=== PATIENT | female | born 1955 | race Caucasian/White ===

== ENCOUNTER 2020-07-02 06:42 | Outpatient (REF) | payer OTHER, SELFPAY ==
[2020-07-02 12:46] LABS: Cholesterol 231 mg/dL; HDL Cholesterol 47 mg/dL; LDL Cholesterol Calculated 143 mg/dl; Triglycerides 205 mg/dL
== END 2020-07-02 06:43 | disposition home or self-care (01) ==
LOC: HO.HMGCLDS 06:42
PROVIDERS: PCP Physician Assistant; Visit Provider Physician Assistant
DX: E78.00 Pure hypercholesterolemia, unspecified (principal)
CPT/HCPCS: 36415; 80061

== ENCOUNTER 2021-01-02 07:23 | Outpatient (REF) | payer OTHER, SELFPAY ==
--- NOTE | ~2021-01-02 | MM_ITS ---
EXAMINATION: MM SCREENING DIGITAL BREAST TOMOSYNTHESIS, BILATERAL CLINICAL INFORMATION: Screening. Asymptomatic. Benign right MR biopsy 3:00 position 2016 (Fibrocystic changes including apocrine metaplasia, microcysts, and moderate ductal hyperplasia). The lifetime risk of breast cancer based on the Tyrer-Cuzick Model is 6%. COMPARISON: Mammography: 12/27/2019, 10/20/2018, 10/18/2017, 10/01/2016 TECHNIQUE: Digital breast tomosynthesis is performed in both the craniocaudal and mediolateral oblique views along with computer-aided detection (CAD). Synthesized 2D images are generated from the tomosynthesis. FINDINGS: The breasts are heterogeneously dense, which may obscure small masses (ACR BI-RADS breast composition Category c). Breast tissue composition borders on average fibroglandular. The left breast parenchymal pattern is similar to prior exams. There is no developing density or interval mass or architectural abnormality. There are 2 biopsy clip markers again noted medial left breast. Neither breast shows abnormal calcifications. The axilla and skin contours are unremarkable. Right breast has biopsy clip marker mid to posterior 3:30 o'clock position. There is new grouped nodularity mid to posterior 3:00 position. This may represent fibrocystic changes. There is also a 0.6 cm posterior to o'clock position increased in size. Visualized margins appear smooth. There are partially obscured margins. No architectural distortion. Patient will be recalled for additional imaging. Remainder of the right breast is unremarkable. MM/MM tomosynthesis screening BI IMPRESSION: Right: -New grouped obscured nodularity 3:30 position. -Small nodule 8:00 position increased in size. Left: -No mammographic evidence of malignancy. ASSESSMENT: BI-RADS 0: Incomplete - Need Additional Imaging Evaluation RECOMMENDATION: 1. Additional views of the right breast for findings inner and outer quadrants (3D spot CC and 3D Spot MLO to better define margins). 2. Targeted ultrasound right breast. 3. Radiology department staff will contact the patient for additional imaging. This patient's information was entered into a reminder system with a target due date for their next mammogram.
== END 2021-01-02 07:24 | disposition home or self-care (01) ==
LOC: HO.MAMMO 07:23
PROVIDERS: PCP Internal Medicine; Visit Provider Physician Assistant
DX: Z12.31 Encounter for screening mammogram for malignant neoplasm of breast (principal)
CPT/HCPCS: 77063; 77067

== ENCOUNTER 2021-01-08 07:48 | Outpatient (REF) | payer OTHER, SELFPAY ==
--- NOTE | ~2021-01-08 | US_ITS ---
EXAMINATION: US DIAGNOSTIC ULTRASOUND BREAST, RIGHT CLINICAL INFORMATION: Circumscribed densities on mammography. COMPARISON: Mammogram of January 08, 2021 and studies dating back to June 24, 2015. TECHNIQUE: Ultrasound of the breast is performed with real-time luque scale imaging and color Doppler. FINDINGS: Targeted right breast ultrasound demonstrates numerous cysts with smooth back pinon and increased through sound transmission and no internal vascularity. Around the 2:00 position the largest cysts measure approximately 8 and 6 mm in diameter. At the 8:00 position of the largest cyst measures approximately 6 mm in diameter. Results are discussed with the patient at time of visit. US/US breast RT limited IMPRESSION: Circumscribed densities on mammography correspond to cysts on ultrasound. ASSESSMENT: BI-RADS 2: Benign RECOMMENDATION: Routine annual mammography screening due in 12 months.
--- NOTE | ~2021-01-08 | MM_ITS ---
EXAMINATION: MM DIAGNOSTIC DIGITAL BREAST TOMOSYNTHESIS, RIGHT TARGETED RIGHT BREAST ULTRASOUND CLINICAL INFORMATION: Multiple circumscribed densities within the right breast medial and lateral aspects. COMPARISON: Mammography: 01/02/2021 and studies dating back to 06/05/2015 TECHNIQUE: Digital breast tomosynthesis is performed. 2D images are generated from the tomosynthesis. The following views are obtained: Spot compression views in craniocaudal and mediolateral oblique projections. Targeted right breast ultrasound. FINDINGS: There are scattered areas of fibroglandular density (ACR BI-RADS breast composition Category b). Numerous well-circumscribed densities are present the largest of which is in the medial aspect of the right breast measuring 1.1 cm in diameter. No suspicious irregularly marginated densities were present. Targeted right breast ultrasound demonstrates numerous cysts with smooth back pinon and increased through sound transmission and no internal vascularity. Around the 2 o'clock position, the largest cysts measure approximately 8 and 6 mm in diameter. At the 8 o'clock. position the largest cyst measures approximately 6 mm in diameter. Results are discussed with the patient at time of visit. MM/MM tomosynthesis added views R IMPRESSION: Circumscribed densities on mammography correspond to cysts on ultrasound. ASSESSMENT: BI-RADS 2: Benign RECOMMENDATION: Routine annual mammography screening due in 12 months. This patient's information was entered into a reminder system with a target due date for their next mammogram.
== END 2021-01-08 07:49 | disposition home or self-care (01) ==
LOC: HO.MAMMO 07:48
PROVIDERS: Visit Provider Physician Assistant
DX: N63.10 Unspecified lump in the right breast, unspecified quadrant (principal)
CPT/HCPCS: 76642; 77061; 77065

== ENCOUNTER 2022-01-06 07:24 | Outpatient (REF) | payer MEDICARE, SELFPAY ==
--- NOTE | ~2022-01-06 | MM_ITS ---
EXAMINATION: MM SCREENING DIGITAL BREAST TOMOSYNTHESIS, BILATERAL CLINICAL INFORMATION: Screening. Asymptomatic. The lifetime risk of breast cancer based on the Tyrer-Cuzick Model is 6%. COMPARISON: Mammography: 01/08/2021, 01/02/2021, 12/27/2019, 10/20/2018, 10/19/1979, right breast ultrasound 01/08/2021. TECHNIQUE: Digital breast tomosynthesis is performed in both the craniocaudal and mediolateral oblique views along with computer-aided detection (CAD). Synthesized 2D images are generated from the tomosynthesis. FINDINGS: The breasts are heterogeneously dense, which may obscure small masses (ACR BI-RADS breast composition Category c). There are fibrocystic changes again seen greatest mid medial right breast with other smooth fibronodular pattern as noted on prior studies. Fibrocystic changes medial right breast are increased in size. There are 2 medial left breast biopsy clip markers and a medial right clip marker. There is no architectural abnormality. No abnormal calcifications. The axilla and skin contours are unremarkable. MM/MM tomosynthesis screening BI IMPRESSION: -No significant changes from prior studies. -Fibrocystic pattern, known cysts medial right breast slightly increased. ASSESSMENT: BI-RADS 2: Benign RECOMMENDATION: Routine annual mammography screening. This patient's information was entered into a reminder system with a target due date for their next mammogram.
== END 2022-01-06 07:25 | disposition home or self-care (01) ==
LOC: HO.MAMMO 07:24
PROVIDERS: PCP Internal Medicine; Visit Provider Internal Medicine
DX: Z12.31 Encounter for screening mammogram for malignant neoplasm of breast (principal)
CPT/HCPCS: 77063; 77067

== ENCOUNTER 2022-08-18 09:34 | Outpatient (REF) | payer MEDICARE, SELFPAY ==
[2022-08-18 10:58] LABS: MANUAL DIFF FLAG NO
[2022-08-18 11:11] LABS: Basophils Percent Auto 0.5 % (0-2); Eosinophils Absolute Auto 0.1 X10*3/uL (0.0-0.4); Eosinophils Percent Auto 1.4 % (0-4); Hematocrit 34.9 % (37.0-47.0); Hemoglobin 11.8 g/dl (12.0-16.0); Imm Gran Abs Auto 0.03 X10*3/uL (0.00-0.03); Imm Gran Pct Auto 0.5 % (0.0-0.4); Lymphocytes Absolute Auto 2.2 X10*3/uL (1.2-4.9); Lymphocytes Percent Auto 38.9 % (20-40); Mean Corpuscular HGB Conc 33.8 g/dl (31.0-35.0); Mean Corpuscular Hemoglobin 30.1 pg (27.0-33.0); Mean Platelet Volume 9.5 fL (9.4-12.3); Monocytes Absolute Auto 0.3 X10*3/uL (0.1-1.2); Monocytes Percent Auto 6.1 % (2-11); Neutrophils Absolute Auto 2.9 x10*3/uL (2.0-8.3); Neutrophils Percent Auto 52.6 % (45-73); Platelet Count 211 X10*3/uL (160-400); Red Blood Count 3.92 X10*6/uL (4.20-5.50); Red Cell Distribution Width 11.8 % (11.0-16.0); White Blood Count 5.6 X10*3/uL (4.8-10.8)
[2022-08-18 11:59] LABS: Estimated Average Glucose 100 mg/dL; Hemoglobin A1c % 5.1 %
[2022-08-18 12:01] LABS: Alanine Aminotransferase 15 U/L (0-31); Albumin Level 4.4 g/dL (3.5-5.0); Alkaline Phosphatase 49 U/L (39-117); Anion Gap 11 (12-20); Aspartate Amino Transferase 16 U/L (5-31); Bilirubin Total 0.5 mg/dL (0.0-1.0); Blood Urea Nitrogen 17 mg/dL (9-16); Calcium 9.5 mg/dL (8.4-10.2); Carbon Dioxide 28 mmol/L (22-29); Chloride 111 mmol/L (96-108); Estimated Glomerular Filt Rate > 60; Glucose Random 69 mg/dL (60-115); Potassium 4.6 mmol/L (3.3-5.1); Sodium 145 mmol/L (135-145); Total Protein 6.5 g/dL (6.5-8.0)
== END 2022-08-18 09:35 | disposition home or self-care (01) ==
LOC: HO.MANLDS 09:34
PROVIDERS: Visit Provider Physician Assistant
DX: Z00.00 Encounter for general adult medical examination without abnormal findings (principal); I10 Essential (primary) hypertension; R73.01 Impaired fasting glucose
CPT/HCPCS: 36415; 80053; 83036; 85025

== ENCOUNTER 2023-01-19 07:36 | Outpatient (REF) | payer MEDICARE, SELFPAY ==
--- NOTE | ~2023-01-19 | MM_ITS ---
EXAMINATION: MM SCREENING DIGITAL BREAST TOMOSYNTHESIS, BILATERAL CLINICAL INFORMATION: Screening. Asymptomatic. Benign right MR biopsy 3:00 position 2016 (Fibrocystic changes including apocrine metaplasia, microcysts, and moderate ductal hyperplasia). COMPARISON: Mammography: 01/06/2022, 01/08/2021, 01/02/2021, 12/27/2019, and dating back to 2016. TECHNIQUE: Digital breast tomosynthesis is performed in both the craniocaudal and mediolateral oblique views along with computer-aided detection (CAD). Synthesized 2D images are generated from the tomosynthesis. FINDINGS: The breasts are heterogeneously dense, which may obscure small masses (ACR BI-RADS breast composition Category c). Post benign biopsy clip noted in the medial posterior left breast, and medial anterior right breast. Circumscribed masses in both breasts are again noted, consistent with waxing and waning cysts as seen on recent ultrasound 01/08/2021. These are benign. There are no suspicious masses, suspicious grouped calcifications, or areas of architectural distortion in either breast. The parenchymal pattern is stable from prior exams. MM/MM tomosynthesis screening BI IMPRESSION: No mammographic evidence of malignancy. Stable benign findings consistent with waxing and waning cysts. ASSESSMENT: BI-RADS BI-RADS 2 - Benign Findings RECOMMENDATION: Routine annual mammography screening. 1 year F/U This examination should not preclude the clinical evaluation of a suspicious palpable abnormality. This patient's information was entered into a reminder system with a target due date for their next mammogram.
== END 2023-01-19 07:37 | disposition home or self-care (01) ==
LOC: HO.MAMMO 07:36
PROVIDERS: PCP Internal Medicine; Visit Provider Internal Medicine
DX: Z12.31 Encounter for screening mammogram for malignant neoplasm of breast (principal)
CPT/HCPCS: 77063; 77067

== ENCOUNTER → 2023-01-19 07:45 | Outpatient (BNV) | payer MEDICARE, SELFPAY | PROVIDERS: PCP Internal Medicine; Visit Provider Radiology Diagnostic Radiology | DX: Z12.31 Encounter for screening mammogram for malignant neoplasm of breast (principal) | CPT/HCPCS: 77063; 77067 ==

== ENCOUNTER 2023-04-25 09:17 | Outpatient (AMB) | payer MEDICARE, SELFPAY ==
--- NOTE | 2023-04-25 11:15 | MHC.OFFWIV ---
Intake Vital Signs 04/25/23 11:28 BP 120/78 Blood Pressure Location Rt brachial Position Sitting Pulse 76 Pulse Source Pulse Oximeter Temp 98.0 F Temp Source Temporal Artery Scan Pulse Oximetry (%) 97 Intake Visit Reasons: EST/cough/[phone] Intake Note: pt is here for c/o cough x3 weeks Patient Tobacco Use Status: Never used Tobacco Allergies No Known Allergies Allergy (Verified 04/25/23 12:02) Medication List - Last Reconciled 04/25/23 by Dov Silva MD estradiol 0.01%(0.1mg/gram) vaginal lisinopril 10 mg PO DAILY Do you need a note to return to daycare/school/sports/work: Yes HPI EST/cough/[phone] HPI Details Patient presents for a sick visit. Reporting symptoms of sinus congestion, sore throat . . No family member is sick. No recent travel. Patient reports symptoms of malaise and fatigue. Symptoms present for the past 3 weeks. [facility] Patient Tobacco Use Status: Never used Tobacco Physical Exam Vital Signs: Last Vital Signs Temp 98.0 F 04/25/23 11:28 Pulse 76 04/25/23 11:28 BP 120/78 04/25/23 11:28 Pulse Ox 97 04/25/23 11:28 Const General: cooperative and healthy appearing Nutritional Appearance: well nourished Orientation/consciousness: patient oriented x3 Limitations: no limitations HEENT Head: Yes normal to inspection Eyes General: appearance normal, both eyes and all related structures Neck Neck: Yes normal visual inspection Chest Chest palpation & inspection: normal palpation of entire chest wall Resp Effort & Inspection: normal respiratory effort Neuro General: patient oriented x3 Assessment & Plan Assessment & Plan (1) Upper respiratory tract infection: Code(s): J06.9 - Acute upper respiratory infection, unspecified Plan: Antibiotics ordered. Increase fluid intake. Tylenol for aches and pains. If symptoms worsen, follow-up here for a recheck. Coding Level of Care Code Est Pt Level 3 (55818) Diagnoses Upper respiratory tract infection J06.9
[2023-04-25 11:28] VITALS: BP 120/78; PULSE 76; TEMP 36.7; O2SAT 97
== END 2023-04-25 12:33 | disposition home or self-care (01) ==
PROVIDERS: PCP Internal Medicine; Visit Provider Internal Medicine
DX: J06.9 Acute upper respiratory infection, unspecified (principal)
CPT/HCPCS: 99213

== ENCOUNTER 2023-09-16 07:07 | Outpatient (REF) | payer MEDICARE, SELFPAY ==
[2023-09-16 10:25] LABS: MANUAL DIFF FLAG NO
[2023-09-16 10:44] LABS: Basophils Percent Auto 0.5 % (0-2); Eosinophils Absolute Auto 0.1 X10*3/uL (0.0-0.4); Eosinophils Percent Auto 1.6 % (0-4); Hematocrit 35.9 % (37.0-47.0); Hemoglobin 12.2 g/dl (12.0-16.0); Imm Gran Abs Auto 0.01 X10*3/uL (0.00-0.03); Imm Gran Pct Auto 0.2 % (0.0-0.4); Lymphocytes Absolute Auto 2.2 X10*3/uL (1.2-4.9); Lymphocytes Percent Auto 35.7 % (20-40); Mean Corpuscular Hemoglobin 30.5 pg (27.0-33.0); Mean Corpuscular Volume 89.8 fL (80.0-98.0); Mean Platelet Volume 9.9 fL (9.4-12.3); Monocytes Absolute Auto 0.4 X10*3/uL (0.1-1.2); Monocytes Percent Auto 6.5 % (2-11); Neutrophils Absolute Auto 3.4 x10*3/uL (2.0-8.3); Neutrophils Percent Auto 55.5 % (45-73); Platelet Count 190 X10*3/uL (160-400); Red Cell Distribution Width 12.1 % (11.0-16.0); White Blood Count 6.2 X10*3/uL (4.8-10.8)
[2023-09-16 11:25] LABS: Alanine Aminotransferase 23 U/L (0-31); Albumin Level 4.4 g/dL (3.5-5.0); Alkaline Phosphatase 54 U/L (39-117); Anion Gap 10 (12-20); Aspartate Amino Transferase 21 U/L (5-31); Bilirubin Total 0.3 mg/dL (0.0-1.0); Blood Urea Nitrogen 18 mg/dL (9-16); Calcium 9.6 mg/dL (8.4-10.2); Carbon Dioxide 25 mmol/L (22-29); Chloride 110 mmol/L (96-108); Cholesterol 236 mg/dL (<200); Estimated Glomerular Filt Rate > 60; Glucose Random 92 mg/dL (60-115); HDL Cholesterol 45 mg/dL (>40); LDL Cholesterol Calculated 148 mg/dL (<100); Potassium 4.2 mmol/L (3.3-5.1); Sodium 141 mmol/L (135-145); Total Protein 6.9 g/dL (6.5-8.0); Triglycerides 217 mg/dL (<150)
== END 2023-09-16 07:08 | disposition home or self-care (01) ==
LOC: HO.HMGCLDS 07:07
PROVIDERS: PCP Physician Assistant; Visit Provider Physician Assistant
DX: Z00.00 Encounter for general adult medical examination without abnormal findings (principal); Z13.6 Encounter for screening for cardiovascular disorders
CPT/HCPCS: 36415; 80053; 80061; 85025

== ENCOUNTER 2024-01-25 07:41 | Outpatient (REF) | payer MEDICARE, SELFPAY ==
--- NOTE | ~2024-01-25 | MM_ITS ---
EXAMINATION: MM SCREENING DIGITAL BREAST TOMOSYNTHESIS, BILATERAL CLINICAL INFORMATION: Screening. Asymptomatic. COMPARISON: Mammography: Comparison is made with available priors TECHNIQUE: Digital breast tomosynthesis is performed in both the craniocaudal and mediolateral oblique views along with computer-aided detection (CAD). Synthesized 2D images are generated from the tomosynthesis. FINDINGS: The breasts are heterogeneously dense, which may obscure small masses (ACR BI-RADS breast composition Category c). Left: Circumscribed oval mass retroareolar region middle depth. Architectural distortion the lateral breast on CC view posterior depth. Marker clip. No suspicious calcifications or other abnormal findings. Right: There are no significant masses, abnormal calcifications, or other abnormalities. MM/MM tomosynthesis screening BI IMPRESSION: Right: No mammographic evidence of malignancy. Left: Circumscribed oval mass and asymmetry. Additional imaging and ultrasound are recommended at this time. ASSESSMENT: BI-RADS BI-RADS 0 - Incomplete: Needs additional Imaging. RECOMMENDATION: 1. Additional views of the left breast 2. Targeted ultrasound if warranted after review of the additional views. 3. Radiology department staff will contact the patient for additional imaging. Additional Imaging required This examination should not preclude the clinical evaluation of a suspicious palpable abnormality. This patient's information was entered into a reminder system with a target due date for their next mammogram. Electronically signed by: Amara Alfaro DO 02/17/2024 03:42 PM EDT
== END 2024-01-25 07:42 | disposition home or self-care (01) ==
LOC: HO.MAMMO 07:41
PROVIDERS: PCP Physician Assistant; Visit Provider Internal Medicine
DX: Z12.31 Encounter for screening mammogram for malignant neoplasm of breast (principal)
CPT/HCPCS: 77063; 77067

== ENCOUNTER → 2024-01-25 07:45 | Outpatient (BNV) | payer MEDICARE, SELFPAY | PROVIDERS: PCP Physician Assistant; Visit Provider Internal Medicine | DX: Z12.31 Encounter for screening mammogram for malignant neoplasm of breast (principal) | CPT/HCPCS: 77063; 77067 ==

== ENCOUNTER 2024-04-02 13:46 | Outpatient (REF) | payer MEDICARE, SELFPAY ==
--- NOTE | ~2024-04-02 | MM_ITS ---
EXAMINATION: MM DIAGNOSTIC DIGITAL BREAST TOMOSYNTHESIS, LEFT US BREAST LIMITED, LEFT MAMMOGRAPHY: CLINICAL INFORMATION: Diagnostic exam; evaluate one view asymmetry CC projection lateral aspects left breast. Evaluate oval circumscribed mass approximate 6:30 to 7:00 position central left breast. COMPARISON: Mammography: 01/25/2024, 01/19/2023, 01/06/2022, 01/08/2021, 01/02/2021, and dating back to 2017. TECHNIQUE: Digital breast tomosynthesis is performed in the following views: Full field 3-D left mediolateral view, as well as 3-D spot compression left CC x2 and left MLO x1 views. Computer-aided diagnosis was used for this study. FINDINGS: There are scattered areas of fibroglandular density (ACR BI-RADS breast composition Category b). One view asymmetry in lateral CC projection does not persist on diagnostic views and is consistent with summation artifact/superimposition of normal breast tissues. Oval 8 mm mass persists in the central inferior left breast, which measured 5 mm approximately in 2020. We will evaluate this with ultrasound. There are post benign biopsy clips in the lower inner left breast from previous biopsies. There are no suspicious abnormalities. ULTRASOUND: CLINICAL INFORMATION: Oval 8 mm mass central inferior left breast, seen on mammography. COMPARISON: No relevant prior left breast ultrasound. TECHNIQUE: Targeted sonographic evaluation was performed using a high frequency linear transducer. Attention was given to the inferior aspect left breast to include the area of mammographic concern. Selected archived documentation. FINDINGS: LEFT BREAST: There is a simple cysts in the 6:00 axis, 3 cm from the nipple, measuring 7 x 5 x 6 mm, with no complicating factor. This correlates well with the mammographic finding. This is benign. MM/MM tomosynthesis added views L IMPRESSION: -There are no persistent findings suspicious for malignancy in the left breast. -Simple cyst measuring 7 mm in the 6:00 axis left breast, correlating with mammographic area of concern. This is benign. -Recommend the patient return to routine annual screening. OVERALL ASSESSMENT: Mammography: BI-RADS 2 - Benign Findings Ultrasound: BI-RADS 2 - Benign Findings RECOMMENDATION: 1 year F/U This patient's information was entered into a reminder system with a target due date for their next mammogram. Electronically signed by: Christian Hough MD 04/02/2024 02:45 PM [facility]
== END 2024-04-02 13:47 | disposition home or self-care (01) ==
LOC: HO.MAMMO 13:46
PROVIDERS: PCP Internal Medicine; Visit Provider Internal Medicine
DX: R92.8 Other abnormal and inconclusive findings on diagnostic imaging of breast (principal); N63.24 Unspecified lump in the left breast, lower inner quadrant
CPT/HCPCS: 76642; 77061; 77065

== ENCOUNTER → 2024-04-02 14:00 | Outpatient (BNV) | payer MEDICARE, SELFPAY | PROVIDERS: PCP Internal Medicine; Visit Provider Radiology Diagnostic Radiology | DX: R92.8 Other abnormal and inconclusive findings on diagnostic imaging of breast (principal) | CPT/HCPCS: 76642; 77065; G0279 ==

== ENCOUNTER 2024-08-29 07:10 | Outpatient (REF) | payer MEDICARE, SELFPAY ==
--- OUTSIDE RECORDS SUMMARY | 2024-08-29 07:13 | XMS_ITS | Data Portability ---
Author Organization [facility] Home Service Address [address] [place] [address] Assessment Encounter Date Assessment Date Assessment LastModified by Organization Details LastModified Time 05/07/2022 05/07/2022 Per the recent ACC cardiac risk stratification guidelines this patient is cleared for the proposed cataract surgery . [email or web address] Not available 05/07/2022 16:02:26 08/18/2022 08/18/2022 The patient denies recent falls or recurrent falls. Denies instability, weakness, abnormal gait, or difficulties with movement. The patient wears correct, supportive shoes and is not otherwise severely visually impaired. The patient is full weight bearing and if using the assistance of a cane or walker feels supported and stable with the use of such devices. All medical conditions have been taken into account that may pose a risk for the patient for falls. Home thais, carpets and/or rugs do not pose a challenge for the patient. The patient has been educated about the use of vitamin D supplementation for bone health and prevention of hypotensive episodes that may increase risk for fall. All question and concerns were answered to the patient's satisfaction. [email or web address] Not available 08/18/2022 09:19:39 Plan of Treatment Reminders Order Date Submit Date Provider Last Modified By Organization Details Last Modified Time Details Appointments None recorded. Lab CMP, serum or plasma 2024 025 [facility], [address] [place] [address], [address], 10:34:11 CBC 2024 025 [facility], [address] [place] [address], [address], 5 10:34:11 vitamin D, 25-hydroxy , total, serum 2024 025 [facility], [address] [place] [address], [address], 5 10:34:11 lipid panel, blood 2024 025 [facility], [address] [place] [address], [address], 5 10:34:10 CMP, serum or plasma 2023 024 [facility], [address] [place] [address], [address], 4 09:25:29 CBC w/ auto diff 2023 024 [facility], [address] [place] [address], [address], 4 11:27:37 lipid panel, blood 2023 024 [facility], [address] [place] [address], [address], 4 09:25:29 CMP, serum or plasma 2022 023 [facility], [address] [place] [address], [address], 3 11:33:57 lipid panel, blood 2022 023 [facility], [address] [place] [address], [address], 3 09:25:18 CBC w/ auto diff 2022 023 [facility], [address] [place] [address], [address], 3 11:33:57 hemoglobin A1c, QN, blood 2022 023 [facility], [address] [place] [address], ARASELI [place], [address], 3 11:33:57 Referral None recorded. Procedures None recorded. Surgeries None recorded. Imaging None recorded. Medication Orders estradiol 0.01% (0.1 mg/gram) vaginal cream 2022 023 [id number], [address] [facility] [place], [address], 09:14:43 lisinopril 10 mg tablet 2022 023 [facility], [facility], [place], [address], 09:14:40 Patient TargetsNo targets recorded. Patient InstructionsNo instructions recorded. Reason for Referral None Reported. Results Created Date Observation Date Name Description Value Unit Range Abnormal Flag Note LastModifiedBy Organization Detail LastModifiedTime 02/05/2001/19/2023 MAMMO , scree cindy, digit al, bilat eral No observ ation record ed. [email or web address] [address] [place], [address], 02/04/2023 12:13:30 02/17/20 24 01/25/2024 MAMMO , scree cindy, digit al, bilat eral No observ ation record ed. [email or web address] [address] [place], [address], 02/18/2024 09:15:06 04/02/20 24 04/02/2024 MAMMO , unila teral , left and US, breas t, left No observ ation record ed. [email or web address] [address] [place], [address], 04/03/2024 12:02:27 04/02/20 24 04/02/2024 MAMMO , devibouchra cindy, estephanie al, bilat alanl No observ ation record ed. [email or web address] [facility] [address] [place], [address], 04/03/2024 10:16:52 Result Notes None recorded. Problems Name Problem SNOMED Code Status Onset Date Resolution Date Notes Provider Name and Address Organization Details Recorded Time Osmel l hyperten manjeet 38849646 Active [facility] [place] 9 16:29:50 Anxiety 28879650 Active 2018 Alexandravinicius carson [facility] 9 16:31:50 Atrophic vaginiti s 48402945 Active 2021 GRACIELA CAMPBELL [address] [place] [address], [address], [facility] 2 09:42:58 Osteoart hritis 361171519 Active 2023 GRACIELA CAMPBELL [address] [place] [address], [address], [facility] 4 09:08:52 Pain of left knee joint 51114649098 4107 Active 2023 GRACIELA CAMPBELL [address] [place] [address], [address], [facility] 4 10:30:08 Hearing loss 73072981 Active 2024 getting hearing aids GRACIELA CAMPBELL [address] [place], [address], [facility] 5 13:41:34 Problem Notes None recorded. Procedures Surgical History Date Name Laterality Status Provider Name and Address Organization Details Recorded Time 12/27/19 20 Most Recent Mammogram completed Alexandravinicius Bowen [facility] 01/08/2020 08:45:16 07/13/19 18 Date of Last Pap Smear completed [facility] 08/25/2018 16:33:53 09/28/19 14 Colonoscopy completed [facility] 08/25/2018 16:36:26 Breast Biopsy completed [facility] 08/25/2018 16:32:23 Hysterectomy/bl adder repair completed GRACIELA CAMPBELL [address] [place], [address], [facility] 08/18/2022 09:10:52 extraction of cataract completed GRACIELA CAMPBELL [address] [place], [address], [facility] 08/26/2023 09:10:35 Imaging Results Imaging Date Name Status LastModified by Organiz ation Details LastModified Time 01/19/2023 MAMMO, screening, digital, bilateral completed [email or web address] [address] [place], [address], 02/04/2023 12:13:30 01/25/2024 MAMMO, screening, digital, bilateral completed [email or web address] [address] [place], [address], 02/18/2024 09:15:06 04/02/2024 MAMMO, unilateral, left and US, breast, left completed [email or web address] [address] [place], [address], 04/03/2024 12:02:27 04/02/2024 MAMMO, screening, digital, bilateral completed [email or web address] [address] [place], [address], 04/03/2024 10:16:52 Procedure Notes None recorded. Medical Equipment None Reported. Allergies No known drug allergies Medications Name Sig Start Date Stop Date Status Note LastModified by Organization Details LastModified Time estradiol 0.1 mg/gm crea 1 gram tu & 01/07 completed Not Available Not Available Not Available oxycodone hcl 5 mg tabs 11/15 completed Not Available Not Available Not Available metronidazo le 1 % gel 11/15 completed Not Available Not Available Not Available ibuprofen 600 mg tabs 11/15 completed Not Available Not Available Not Available lisinopril 5 mg tabs 11/15 completed Not Available Not Available Not Available polyethylen e glycol 3350 powd 11/15 completed Not Available Not Available Not Available lisinopril 10 mg tabs 11/15 completed Not Available Not Available Not Available azithromyci n 250 mg tablet TAKE 2 TABLETS BY MOUTH TODAY, THEN TAKE 1 TABLET DAILY FOR 4 DAYS DIRECTED 08/25 completed Not Available Not Available Not Available ofloxacin 0.3 % eye drops INSTILL 1 DROP INTO RIGHT EYE 4 TIMES DAILY STARTING DAY AFTER SURGERY AND CONTINUIN G active Not Available Not Available No t Available Zyrtec 10 mg tablet Take 1 tablet every day by oral route in the evening. active OTC Not Available Not Available No t Available ketorolac 0.5 % eye drops INSTILL 1 DROP INTO RIGHT EYE FOUR TIMES A DAY 08/18 completed Not Available Not Available Not Available prednisolon e acetate 1 % eye drops,suspe nsion INSTILL 1 DROP INTO THE RIGHT EYE 4 TIMES A DAY STARTING THE DAY AFTER SURGERY AND CONTINUIN G active Not Available Not Available No t Available ciprofloxac in 0.3 % eye drops 08/18 completed Not Available Not Available Not Available lisinopril 10 mg tablet TAKE 1 TABLET DAILY active Not Available Not Available No t Available sertraline 25 mg tablet TAKE 1 TABLET DAILY active Not Available Not Available No t Available codeine 10 mg-guaifene sin 100 mg/5 mL oral liquid TAKE 5MLS BY MOUTH EVERY 6 HOURS NEEDED FOR ALLERGY SYMPTOMS 08/25 completed Not Available Not Available Not Available lisinopril 5 mg tablet TAKE 1 TABLET BY MOUTH ONCE DAILY NEEDS APPT FOR FURTHER REFILLS 11/15 completed Not Available Not Available Not Available mupirocin 2 % topical ointment APPLY AM AND PM AFTER WASHING WITH SOAP AND WATER TO CYST SITE ON CHEST UNTIL HEALED active Not Available Not Available No t Available estradiol 0.01% (0.1 mg/gram) vaginal cream INSERT 1 GRAM VAGINALLY EVERY TUESDAY AND OMODY DIRECTED. active Not Available Not Available No t Available metronidazo le 1 % topical gel APPLY TOPICALLY TO FACE DAILY 08/18 completed Not Available Not Available Not Available calcium 600mg once a day active Not Available Not Available No t Available Metrogel apply once a day 08/25 completed Not Available Not Available Not Available multivitami n once a day active Not Available Not Available No t Available Tylenol Arthritis Pain once at night active OTC Not Available Not Available No t Available COVID-19 test specimen collection TEST DIRECTED TODAY 08/07 completed Not Available Not Available Not Available Vitals Date Recorded Body height Body mass index (BMI) Body weight Oxygen saturation Oxygen saturation in Arterial blood by Pulse oximetry Heart rate Systolic blood pressure Diastolic blood pressure Provider Name and Address Organization Details Last Updated DateTime 2 162.56 cm 25.6 kg/m2 53718.2 6 g 98 % 98 % 93 /min 132 mm[Hg] 78 mm[Hg] Chasity Cunha [facility] 2 15:29:53 Date Recorded Body height Body mass index (BMI) Body weight Heart rate Oxygen saturation Oxygen saturation in Arterial blood by Pulse oximetry Systolic blood pressure Diastolic blood pressure Provider Name and Address Organization Details Last Updated DateTime 3 162.56 cm 26.1 kg/m2 60382.1 2 g 91 /min 91 % 91 % 122 mm[Hg] 58 mm[Hg] Amirah Gu [facility] 3 09:05:13 Date Recorded Body height Body mass index (BMI) Body weight Oxygen saturation Oxygen saturation in Arterial blood by Pulse oximetry Heart rate Systolic blood pressure Diastolic blood pressure Provider Name and Address Organization Details Last Updated DateTime 4 162.56 cm 27.3 kg/m2 92032.1 9 g 98 % 98 % 95 /min 150 mm[Hg] 84 mm[Hg] Amirah Gu [facility] 4 09:03:54 Date Recorded Body height Body mass index (BMI) Body weight Heart rate Oxygen saturation Oxygen saturation in Arterial blood by Pulse oximetry Systolic blood pressure Diastolic blood pressure Provider Name and Address Organization Details Last Updated DateTime 5 162.56 cm 27.1 kg/m2 52250.8 8 g 90 /min 95 % 95 % 128 mm[Hg] 86 mm[Hg] Rosenda Benitez [facility] 13:29:37 Date Recorded Body height Body mass index (BMI) Body weight Heart rate Oxygen saturation Oxygen saturation in Arterial blood by Pulse oximetry Systolic blood pressure Diastolic blood pressure Provider Name and Address Organization Details Last Updated DateTime 162.56 cm 27 kg/m2 37752.8 g 89 /min 96 % 96 % 146 mm[Hg] 92 mm[Hg] Rosenda Benitez [facility] 09:59:16 Social History Question Answer Notes LastModified by Organizat ion Details LastModified Time Tobacco Smoking Status Former Smoker on and off 10 years; stopped in early . [facility] [place] 08/07/2021 15:26:00 What Was The Date Of Your Most Recent Tobacco Screening? 08/27/2024 [email or web address] Information not available 08/27/2024 Do You Or Have You Ever Used Any Other Forms Of Tobacco Or Nicotine? No [email or web address] Information not available 08/18/2022 Sex: Unknown Functional Status None recorded. Mental Status None recorded. Family History Relationship Description Onset Age of this Age Resolved Age Notes LastModified by Organization Details LastModified Time Father Essential hypertension Not available 09:51:58 Mother Essential hypertension Not available 09:51:58 Mother Diabetes mellitus [email or web address] Not available 2018 08:16:03 Unspecified Relation Essential hypertension jerry [email or web address] Not available 08/27/2024 09:51:58 Maternal Grandmother Family history of malignant neoplasm colon cancer Not available 08/27/2024 09:51:58 Paternal Uncle Family history of malignant neoplasm Not available 2024 09:51:58 Maternal Uncle Family history of malignant neoplasm colon cancer Not available 08/27/2024 09:51:58 Medical History Condition Response Coronary Artery Disease N Gout N Kidney Stones N Blood Diseases N Hyperthyroidism N Breast Cancer N Blood Transfusion N Lung Disease N Hypothyroidism N Depression N COPD N Difficulty Swallowing N Anesthesia Complications Y Anxiety Disorder Y Obesity N Vision or Eye Problems Y Mental Disorder N Cancer N Stroke N Bladder or Kidney Problems N High Cholesterol N Liver Disease N Headaches N Fibromyalgia N Kidney Disease N Allergies/Hayfever Y Heart Problems N Thyroid Problems N GI Problems N Skin Problems N Eating Disorder N Anemia N Constipation N Mental Illness N Diabetes N Seizures/Epilepsy N Congestive Heart Failure (CHF) N Eczema N Diverticulitis N Abuse/Domestic Violence N Asthma N Reflux/GERD N Hepatitis N Heart Disease N Pulmonary Embolism N Hypertension Y Chronic Ear Infections N Chicken Pox Y Autism Spectrum Disorder (ASD) N Thrombophilias N Gynecological History Statement/Question Response Date of Last Pap Smear 07/13/2017 Most Recent Mammogram 12/27/2019 Obstetrics History GPAL:G 0 P 0 0 0 0 Immunizations Vaccine Type Date Status Note Provider Nam e and Address Organization Details Recorded Time zoster recombinant 09/05/19 21 completed GRACIELA CAMPBELL [address] [place] [address], [address], [facility] 08/07/2021 15:47:55 COVID-19, mRNA, LNP-S, PF, 100 mcg/0.5mL dose or 50 mcg/0.25mL dose 09/05/19 21 completed Chasity carson [facility] 09/15/2021 11:13:33 COVID-19, mRNA, LNP-S, PF, 100 mcg/0.5mL dose or 50 mcg/0.25mL dose 10/03/19 21 completed Chasity carson [facility] 09/15/2021 11:13:41 COVID-19, mRNA, LNP-S, PF, 100 mcg/0.5mL dose or 50 mcg/0.25mL dose 05/01/20 21 completed Chasity carson [facility] 09/15/2021 11:13:49 zoster, unspecified formulation 06/19/19 22 completed Chasity carson [facility] 09/15/2021 11:14:31 zoster, unspecified formulation 09/05/19 22 completed Chasity carson [facility] 09/15/2021 11:14:38 Influenza, split virus, quadrivalent, preservative 04/24/20 21 completed Chasity carson [facility] 09/15/2021 11:15:01 Influenza, split virus, quadrivalent, preservative 03/17/20 [facility] 11:15:09 Influenza, split virus, quadrivalent, preservative 02/23/20 19 [facility]15[facility]2021 11:15:19 influenza, unspecified formulation 04/02/20 [facility] 08/18/2022 09:11:49 Pneumococcal conjugate PCV20, polysaccharide QCV268 conjugate, adjuvant, PF 09/02/19 24 completed GRACIELA CAMPBELL [address] [place] [address], [address], [facility] 09/02/2023 16:00:20 Respiratory syncytial virus (RSV) vaccine, unspecified 09/02/19 24 completed GRACIELA CAMPBELL [address] [place] [address], [address], [facility] 09/02/2023 16:00:56 SARS-COV-2 (COVID-19) vaccine, UNSPECIFIED 03/13/20 [facility] 03/13/2024 11:04:12 SARS-COV-2 (COVID-19) vaccine, UNSPECIFIED 03/12/20 24 completed GRACIELA CAMPBELL [address] [place] [address], [address], [facility] 03/13/2024 11:04:21 influenza, unspecified formulation 03/13/20 24 [facility] 03/13/2024 11:04:23 influenza nasal, unspecified formulation 03/12/20 24 completed GRACIELA CAMPBELL [address] [place] [address], [address], [facility] 03/13/2024 11:04:37 Td(adult) unspecified formulation 01/29/20 16 [facility] [place] 08/25/2018 16:33:05 Influenza, split virus, quadrivalent, preservative 03/17/20 20 completed Alexandra Bowen [facility] 03/18/2020 09:09:44 Past Encounters Encounter ID Performer Location Encounter Start Date Encounter Closed Date Diagnosis/Indication Diagnosis SNOMED-CT Code Diagnosis ICD10 Code Diagnosis Note [id number] Usha Hanson NP, [facility] [address] [facility] [place] [address] 08/28/2018 09:10:44 08/28/2018 13:53:21 Adult health examination 876066729 Z00.00 Anxiety 74552283 F41.9 Essential hypertension 71581621 I10 increase lisinopril to 10 mg Screening procedure 2012 5006 Z13.9 Active or passive immunization 336321441 Z23 Decreased estrogen level 587481985 E28.39 Usha Hanson NP, [facility] [address] [facility] [address] 10/10/2018 11:35:03 10/10/2018 13:51:15 Cystocele without uterine prolapse 08218229 N81.10 discussed options Painless r ectal bleeding 041969916 K62.5 colonoscop y 09/2013 Essential hypertension 80043576 I10 remains elevated, will recheck in 3 weeks [id number] GRACIELA CAMPBELL [facility] [address] [facility],[place] [facility] [place] [address] 11/16/2019 09:02:10 11/16/2019 09:42:48 Adult health examination 342024881 Z00.00 no concerns today [id number] GRACIELA CAMPBELL [facility] [address] [facility],[place] [address] 08/07/2021 15:13:24 08/10/2021 16:15:05 Active or passive immunization 209083923 Z23 up to date Adult heal th examination 289040449 Z00.00 [place] [id number] GRACIELA CAMPBELL [facility] [address] [facility],[place] [address] 08/14/2021 15:27:19 08/14/2021 15:45:14 Essential hypertension 92342013 I10 [place]N [id number] GRACIELA CAMPBELL [facility] [address] [facility] [address],[place] [address] 09/16/2021 09:29:28 09/16/2021 09:58:57 Essential hypertension 35415673 I10 BP is stable, no changes, home readings are excellent Anxiety 79536812 F41.1 stable [id number] Ion Rhoades, [facility] [address] [facility] [address],[place] [address] 05/07/2022 15:22:10 05/07/2022 16:09:16 Pre-surgery evaluation 269727507 Z01.818 Cleared pt understand s to take her usual medication s on morning of the procedure with sips of H20 [id number] GRACIELA CAMPBELL [facility] [address] [facility] [address] [place] [address] 08/18/2022 08:56:20 08/18/2022 10:56:53 Active or passive immunization 645143282 Z23 up to date Adult heal examination 577095173 Z00.00 no concerns todaywill be monitoring BP Atrophic vaginitis 40833 000 N95.2 needs refilldoin g well on it Essential hypertension 63400806 I10 BP is stable, no changes, home readings are excellent [id number] GRACIELA CAMPBELL [facility] [address] [facility] [address] [place] [address] 08/26/2023 08:57:42 08/26/2023 11:25:38 Anxiety 52086227 F41.1 stable Essential hypertension 97476275 I10 recheck BPmonitor BP at home Osteoarthritis 801267529 M16.0 left knee and left hip Adult heal th examination 481455880 Z00.00 no concerns todaywill be monitoring BP [id number] GRACIELA CAMPBELL [facility] [address] [facility] [address],[place] [address] 07/24/2024 13:23:57 07/24/2024 13:56:26 Pre-surgery evaluation 384144269 Z01.818 The patient was seen in the office today for pre-op evaluation . All medical conditions on patient's problem list were addressed and are currently stable, no interventi on needed at this time. Based on history and physical performed, the patient is cleared for surgery. Essential hypertension 90201869 I10 excellent control [id number] Ion Rhoades DO [facility] [address] [facility],[place] [address] 08/27/2024 09:51:35 08/27/2024 10:46:15 Active or passive immunization 282237472 Z23 utd Adult heal th examination 987762001 Z00.00 doing excellentm ust keep active Essential hypertension 16278566 I10 stablewill need to chk at home Pain of le ft knee joint 8944267785 41235 M25.562 hurts at night but uses tylenol 8hr xr shows djd but with exercise Health Concerns Section Related Observation LastModified by Organization Detai ls LastModified Time None Recorded Concern Status LastModified by Organization Details LastModified Time None Recorded Advance Directives Directive None Recorded Payers Encounter Date Sequence Insurance Name Policy Number Policy Maguire Covered Member ID Maguire Member ID Guarantor Name 05/07/2022 2 [place] [employer] Chantelle E Vitaly Fred [id number] Chantelle Vitaly-Ale tin 05/07/2022 1 [facility]MEDICARE [place]PLACEMENT PPO) [id number] Chantelle E Vitaly Fred [id number] Chantelle Vitaly-Ale tin 08/18/2022 1 [place]IC[place]AC[place] PPO) [id number] Chantelle E Vitaly Fred [id number] Chantelle Vitaly-Ale tin 08/26/2023 1 [facility]ICARE [place]PLACEMENT PPO) [id number] Chantelle E Vitaly Fred [id number] Chantelle Vitaly-Ale tin 07/24/2024 1 [facility] (MEDICARE [place]PLACEMENT PPO) [id number] Chantelle E Vitaly Fred [id number] Chantelle Vitaly-Ale tin 08/27/2024 1 [facility]: MEDICARE PPO BLUE (MEDICARE REPLACEMENT PPO) [id number] Chantelle Ibarra [id number] Chantelle Mccallum henrique Notes Date Note Type Note Provider Name and Address Organization Details Recorded Time 2 text/htm l Pre-OpReported bypatient.Risk Factorsno cognitive impairment; no functional impairment; no malnutrition; no frailty; able to climb a flight of stairs (exercise capacity>4 METS); no obstructive sleep apnea; non-smoker; no alcohol misuse; no illicit drug use; no chronic cardiopulmonary condition; not obese Anesthesia hx:no hx of anesthesia complications; no allergy to anesthetic agents; no family history of anesthesia complications Functional Ability:able to walk up stairs; able to perform heavy work around the house; no difficulty walking up hills; able to walk 4 mph here for pre op eval for proposed cataract surgery Ion Rhoades DO [address] [place] [address], [address], [facility] 05/07/2022 16:05:38 3 text/htm l Annual WellnessReported bypatient.Diet and Nutrition:healthy diet; discussed vitamin and supplement use; discussed portion control; discussed maintaining calcium balance; discussed diet improvement; no major changes in diet Fracture Risk:no history of fractures; no recent explained fracture; no sudden unexplained fractures; no previous musculoskeletal injuries; no injuries, no falls, no fx no significant risk for falls currently walks without restrictions Physical Activity:exercises on a regular basis; recent increase in physical activity; good physical condition; discussed weightbearing activities; discussed exercise habits; walks everyday at work during lunch also Additional Lifestyle Factors:no tobacco use; drinks alcohol (mild-moderate) Depression Risk:never feels sad, empty, or tearful; no loss of interest in activities; no significant changes in weight; no sleep disturbances or insomnia; no agitation; no loss of energy; no feelings of worthlessness or guilt; no thoughts of suicide; no history of depression; no history of mood disorders Hearing:no loss of hearing Vision:no vision problems the patient most likely has patellofemoral arthritis (pain with kneeling only)the patient does note that she was more sedentary than she usual was last year GRACIELA CAMPBELL [address] [place], [address], [facility] 08/18/2022 09:29:32 4 text/htm l Annual WellnessReported bypatient.Diet and Nutrition:healthy diet; discussed vitamin and supplement use; discussed portion control; discussed maintaining calcium balance; discussed diet improvement; no major changes in diet Fracture Risk:no history of fractures; no recent explained fracture; no sudden unexplained fractures; no previous musculoskeletal injuries; no injuries, no falls, no fx no significant risk for falls currently walks without restrictions Physical Activity:exercises on a regular basis; recent increase in physical activity; good physical condition; discussed weightbearing activities; discussed exercise habits; walks everyday at work during lunch also Additional Lifestyle Factors:no tobacco use; drinks alcohol (mild-moderate) Depression Risk:never feels sad, empty, or tearful; no loss of interest in activities; no significant changes in weight; no sleep disturbances or insomnia; no agitation; no loss of energy; no feelings of worthlessness or guilt; no thoughts of suicide; no history of depression; no history of mood disorders Hearing:no loss of hearing Vision:no vision problems; cataract surgery bilateral done, vision is great still uses her glasses, she has mild astigmatism and up close the patient most likely has patellofemoral arthritis (pain with kneeling only)the patient does note that she was more sedentary than she usual was last year discussed what to use for the left knee and left hip had a cold a few weeks ago, with lingering cough GRACIELA CAMPBELL [address] [place], [address], [facility] 08/26/2023 09:27:16 5 text/htm l Pre-OpReported bypatient.Surgery to be Performed:Right Vitrectomy with [place] Retina Severity:moderate Risk Factorsno cognitive impairment; no functional impairment; no malnutrition; no frailty; able to climb a flight of stairs (exercise capacity>4 METS); no obstructive sleep apnea; non-smoker; no alcohol misuse; no illicit drug use; no chronic cardiopulmonary condition; not obese; HTN: stable (excellent control) with the lisinopril Anesthesia hx:no hx of anesthesia complications; no allergy to anesthetic agents; no family history of anesthesia complications Functional Ability:able to walk up stairs; able to perform heavy work around the house; no difficulty walking up hills; able to walk 4 mph Post-Op Support:adequate assistance at home GRACIELA CAMPBELL [address] [place], [address], [facility] 07/24/2024 13:53:24 5 text/htm l Annual WellnessReported bypatient.Diet and Nutrition:healthy diet Fracture Risk:no history of fractures; no recent explained fracture; no sudden unexplained fractures; no previous musculoskeletal injuries Physical Activity:exercises on a regular basis; recent increase in physical activity; good physical condition Additional Lifestyle Factors:no tobacco use; no alcohol intake; stopped drinking alcohol Depression Risk:never feels sad, empty, or tearful; no loss of interest in activities; no significant changes in weight; no sleep disturbances or insomnia; no agitation; no loss of energy; no feelings of worthlessness or guilt; no thoughts of suicide; no history of depression; no history of mood disorders Hearing:no loss of hearing Vision:no vision problemsCare Management - HypertensionReported bypatient.Self Care:not under emotional stress Severity:symptoms are improving; does not interfere with daily activities Associated Symptoms:no dizziness; no lightheadedness; no chest pain; no shortness of breath; no palpitations; no edema; no calf muscle cramps; no blurred vision; no confusion; no headaches; no fatigue doing well overall Ion Rhoades DO [address] [place], [address], [facility] 08/27/2024 10:36:55 OBGyn Episode No OBEpisode recorded.
--- OUTSIDE RECORDS SUMMARY | 2024-08-29 07:14 | XMS_ITS ---
Author Organization [facility] Address [address] [place] [address] Care Team Providers Care Professor Of French Name Role Phone Ion Rhoades Primary Care Provider Bruno Linares [phone] Encounters Encounter Location Date Provider Diagnosis [facility] [address] [place] [address] 06/29/2024 Bruno Ontiveros Plan Of Treatment Next Appt Details Provider Name:Bruno Ontiveros , 10/17/2024 08:30:00 AM, [address] [place] [address] , [place], [place], [phone], Progress Notes * AGUS LOCO COURTNEY B:1955 (68 yo F)Acc No.[id number]:06/29/2024 Patient:?MEGAN LOCO :1955???Age:68 Y???Sex:Female Address:[address] [place] [address] * true * Date:? Generated for Printi ng/Fahaileyg/eTransmitting on:?08/29/2024 07:14 AM EDT
--- OUTSIDE RECORDS SUMMARY | 2024-08-29 07:14 | XMS_ITS | Patient Health Record ---
Author Organization [facility] Address [address] [place] [address] Care Team Providers Care Sole Assessor Name Role Phone Jf Ion Primary Care Provider Bruno Linares [phone] Allergies No Known Allergies Reason For Referral No Information Medications Medication SIG (Take, Route, Fr equency, Duration) Notes Start Date End Date Status Calcium 600 + D Acti ve Metrogel Not-Taking Mupirocin 2 % External for 30 Not-Taking Lisinopril 10 MG Oral for 90 A ctive Estradiol 0.1 MG/GM Vaginal for 90 Active Immunizations Vaccine Route Administration Date Status Comme nts Influenza Unknown 02/21/2024 Administered Social History Alcohol Screen Question Answer Notes Did you have a drink contain ing alcohol in the past year? Yes How often did you have a dri nk containing alcohol in the past year? 2 to 3 times a week (3 points) How many drinks did you have on a typical day when you were drinking in the past year? 1 or 2 drinks (0 point) How often did you have 6 or more drinks on one occasion in the past year? Never (0 point) Points 3 Interpretation Positive Section Notes: Nonsmoker; 1 glass of wine Q D Nonsmoker; occ alcohol Problems Problem Type SNOMED Code ICD Code Onset Dates Problem Status W/U Status Risk Notes Problem Colon cancer screening (379403426) Colon cancer screening (Z12.11) Active confirmed Problem Pre-procedure evaluation check (743302361) Encounter for other preprocedural examination (Z01.818) Active confirmed Vital Signs Temperature 96.9 degrees Fahrenheit 06/27/2024 Blood pressure diastolic 00 mm Hg 06/27/2024 Height 65 in 06/27/2024 Blood pressure systolic 000 mm Hg 06/27/2024 Weight 154 lbs 06/27/2024 BMI 25.62 kg/m2 06/27/2024 Encounters Encounter Location Date Provider Diagnosis [facility] [address] [place] [address] 06/27/2024 Bruno Ontiveros Colon cancer screeni ng Z12.11 and Encounter for other preprocedural examination Z01.818 [facility] [address] [place] [address] 06/29/2024 Bruno Ontiveros Assessments Encounter Date Diagnosis (ICD Code) Assessment Notes Treatment Notes Treatment Clinical Notes Section Notes 06/27/2024 Colon cancer screening (ICD-10 - Z12.11) Overall, Agus appears quite well. Given her age, good clinical appearance, and her last colonoscopy being over 10 years ago, I did recommend a followup colonoscopy for further screening purposes. We did review the rationale for that In regard to colon cancer prevention . Full consent was obtained for this, including risks of bleeding and perforation. The procedure will be done monitored anesthesia care. Agus was comfortable with this plan. Thank you again for allowing me to participate in Agus's care. I shall continue to keep you advised of her progress. 06/27/2024 Encounter for other preprocedural examination (ICD-10 - Z01.818) Overall, Agus appears quite well. Given her age, good clinical appearance, and her last colonoscopy being over 10 years ago, I did recommend a followup colonoscopy for further screening purposes. We did review the rationale for that In regard to colon cancer prevention . Full consent was obtained for this, including risks of bleeding and perforation. The procedure will be done monitored anesthesia care. Agus was comfortable with this plan. Thank you again for allowing me to participate in Agus's care. I shall continue to keep you advised of her progress. Plan Of Treatment Future Test Test Name Order Date COLONOSCOPY 07/11/2013 COLONOSCOPY 06/27/2024 Next Appt Details Provider Name:Bruno Ontiveros , 10/17/2024 08:30:00 AM, [address] [place] [address] , [place], [place], [phone], Insurance Providers Payer Name Payer Address Payer Phone Subscriber Number Group Number Insured Name Patient Relationship to Insured Coverage Start Date Coverage End Date [facility] [address] [place] [address] [id number] AGUS LOCO Self - patient is the insured Medical (General) History Medical History History ICD Code Negative colonoscopy in 2007, except for diverticulosis Denies IA,DM,CVA,Lung disease,renal dise ase Negtaive screening colonoscopy in 2013 e xcept for a hyperplastic polyp HTN Surgical History Surgery Date(Month/Year) FELISHA, Bladder suspension 2018
--- OUTSIDE RECORDS SUMMARY | 2024-08-29 07:14 | XMS_ITS ---
Author Organization [facility] Address [address] [place] [address] Care Team Providers Care Bail Agent Name Role Phone Ion Rhoades Primary Care Provider Bruno Linares [phone] Allergies No Known Allergies REASON FOR VISIT Patient presents today for a SCREENING COLON Medications Medication SIG (Take, Route, Fr equency, Duration) Notes Start Date End Date Status Metrogel Not-Taking Mupirocin 2 % External for 30 Not-Taking Lisinopril 10 MG Oral for 90 A ctive Estradiol 0.1 MG/GM Vaginal for 90 Active Calcium 600 + D Acti ve Social History Tobacco Use: Social History Observation Description Date Details (start date - stop date) Never Smoker NA - NA Tobacco Use/Smoking Question Answer Notes Patient is a nonsmoker Alcohol Screen Question Answer Notes Did you [...] Points 3 Interpretation Positive Section Notes: Nonsmoker; occ alcohol Problems Problem Type SNOMED Code ICD Code Onset Dates Problem Status W/U Status Risk Notes Problem Colon cancer screening (938487659) Colon cancer screening (Z12.11) Active confirmed Problem Pre-procedure evaluation check (340505301) Encounter for other preprocedural examination (Z01.818) Active confirmed Vital Signs Temperature 96.9 degrees Fahrenheit 06/27/19 25 Blood pressure systolic 000 mm Hg 06/27/19 25 Blood pressure diastolic 00 mm Hg 025 Height 65 in 06/27/2024 Weight 154 lbs 06/27/2024 BMI 25.62 kg/m2 06/27/2024 Encounters Encounter Location Date Provider Diagnosis [facility] [address] [place] [address] 06/27/2024 Bruno Ontiveros Colon cancer screeni ng Z12.11 and Encounter for other preprocedural examination Z01.818 Assessments Encounter Date Diagnosis (ICD Code) Assessment [...] Future Test Test Name Order Date COLONOSCOPY 06/27/2024 Next Appt Details Follow Up: prn, Reason: Provider Name:Bruno Ontiveros , 10/17/2024 08:30:00 AM, [address] [place] [address] , [place], [place], [phone], Progress Notes * AGUS LOCO COURTNEY B:1955 (68 yo F)Acc No.[id number]:06/27/2024 Progress Notes Patient:MEGAN RUDOLPH Provider:?Bruno Ontiveros MD :1955???Age:68 Y???Sex:Female D ate:06/27/2024 [facility], [id number] Pcp:Ion Rhoades Subjective: * Chief Complaints: * ???Patient presents today fo r a SCREENING COLON * HPI: ???incontinence:? I saw Agus in the office today for evaluation of colorectal cancer screening. ?I last saw Agus in 2013, at which time she underwent a negative screening colonoscopy. She presently reports that she feels well. She enjoys a good appetite and denies any significant heartburn or dysphagia. Her bowel movements have been regular and without any signs of bleeding. She denies abdominal pain, jaundice, nor unintentional weight loss. She does have several relatives on her mother's side that have had colon cancer, but there is no family history of first-degree relatives with colorectal cancer. * ROS:?General/Constitutional:?Change in appetite?denies.?Chills?denies.?Fatigue?denies.?Ophthalmologic:?Patient denies? Negative..?ENT:?Patient denies?Negative..?Respiratory:?Patient denies?No coughing/hemoptysis..?Cardiovascular:?Patient denies? No chest pain/orthopnea..?Gastrointestinal:?Comments?See HPI for details.?Genitourinary:?Patient denies? No dysuria/hematuria..?Musculoskeletal:?Patient denies? No specific arthralgias/myalgias..?Skin:?Patient denies?No rash/pruritus..?Neurologic:?Patient denies? No headaches/seizures..?Psychiatric:?Patient denies?Negative..? * Medical History:? * Surgical History:?FELISHA, Jef er suspension 2018 * Hospitalization/Major Diagno stic Procedure:?No Hospitalization History. * Family History:?Father: dece ased.?Mother: alive, diagnosed with Diabetes.?Maternal Grand Mother: colon cancer in her 40's to 50's.?Maternal uncle: colon cancer in his 60's.? 2 1st cousins(maternal) of colon cancer--in their early 60's. Both of her siblings had negative colonoscopies. as did her mother and father. Father's brother had liver cancer. * Social History:?Tobacco Use:?Tobacco Use/Smoking?Patient is a?nonsmoker.?Drugs/Alcohol:?Alcohol Screen?Did you have a drink containing alcohol in the past year??Yes,?How often did you have a drink containing alcohol in the past year??2 to 3 times a week (3 points),?How many drinks did you have on a typical day when you were drinking in the past year??1 or 2 drinks (0 point),?How often did you have 6 or more drinks on one occasion in the past year??Never (0 point),?Points?3,?Interpretation?Positive.?Miscellaneous:?Marital status: . Occupation: clinical services assistant--retired. ???Nonsmoker; occ alcohol. * Medications:?TakingCalcium 6 00 + D Lisinopril 10 MG Tablet Oral Estradiol 0.1 MG/GM Cream Vaginal Taking Calcium 600 + D Taking Lisinopril 10 MG Tablet Oral Taking Estradiol 0.1 MG/GM Cream Vaginal Not-Taking/PRNMetrogel Mupirocin 2 % Ointment External Not-Taking/PRN Metrogel Not-Taking/PRN Mupirocin 2 % Ointment External DiscontinuedSuprep Bowel Prep 1 Solution as directed Orally split dose as directedMedication List reviewed and reconciled with the patientDiscontinued Suprep Bowel Prep 1 Solution as directed Orally split dose as directedMedication List reviewed and reconciled with the patient * Allergies:?N.K.D.A.yes[Aller gies Verified] Objective: * Vitals:?Wt: 154 lbs, Ht: 65 in, BMI:25.62 Index, BP: 000/00 mm Hg, Temp: 96.9. * Examination: ???General Examination: ?GENERAL APPEARANCE:?pleasant, well nourished, well developed, in no acute distress.?EYES:?sclera non-icteric.?ORAL CAVITY:?mucosa moist.?NECK/THYROID:?no cervical lymphadenopathy, neck supple.?SKIN:?nonjaundiced, no spider angiomata..?HEART:?S1, S2 normal.?LUNGS:?clear to auscultation bilaterally.?ABDOMEN:?normal bowel sounds, no guarding or rigidity, no hepatosplenomegaly, no masses palpable, soft, nontender, nondistended..?EXTREMITIES:?no edema.?NEUROLOGIC:?alert and oriented.? Assessment: * Assessment: 1.?Encounter for other prepr ocedural examination - Z01.818 (Primary)?2.?Colon cancer screening - Z12.11? Overall, Agus appears qu ite well. Given her age, good clinical appearance, [...] to keep you advised of her progress. Plan: * Treatment: * Procedure Codes:?3017F COLOR ECTAL CA SCREEN DOC [id number] TOBACCO [id number] BP SCR NOT PRFRM REC REASON NOS * Preventive Medicine:? ??Counseling:?Care goal follow-up plan:?Above Normal BMI Follow-up?Giving encouragement to exercise,?BMI management provided?Yes.? ??Urinary Incontinence:?Urinary Incontinence?Assessment:?Absent,?Plan of care documented:?No, reason not specified.? ??Screenings:?Fall Risk Screening?Fall Risk Assessment:?No falls in the past year,?Screening:?No falls in the past year,?Assessment:?Not performed, no reason specified,?Plan of Care:?Not documented, no reason specified.? * Follow Up:?prn * * Sign off status: Completed true * Provider:?Bruno Ontiveros MD Date:? 025 Generated for Betty archer/Brandee/Osiel on:?08/29/2024 07:13 AM EDT History and Physical Notes * HPI (History of Present Illness) Category Sub-Category Detail Notes Category Not es incontinence I saw Agus in the office today for evaluation of colorectal cancer screening. I last saw Agus in 2013, at which time she underwent a negative screening colonoscopy. She presently reports that she feels well. She enjoys a good appetite and denies any significant heartburn or dysphagia. Her bowel movements have been regular and without any signs of bleeding. She denies abdominal pain, jaundice, nor unintentional weight loss. She does have several relatives on her mother's side that have had colon cancer, but there is no family history of first-degree relatives with colorectal cancer. Examination Category Sub-Category Detail Notes Category Not es General Examination GENERAL APPEARANCE: pleasant , well nourished, well developed, in no acute distress EYES: sclera non-icteric NECK/THYROID: no cervical lymphade nopathy, neck supple HEART: S1, S2 normal LUNGS: clear to auscultatio n bilaterally ABDOMEN: normal bowel sounds, no guarding or rigidity, no hepatosplenomegaly, no masses palpable, soft, nontender, nondistended. NEUROLOGIC: alert and oriented SKIN: nonjaundiced, no spi mandy angiomata. EXTREMITIES: no edema ORAL CAVITY: mucosa moist
--- OUTSIDE RECORDS SUMMARY | 2024-08-29 07:14 | XMS_ITS | Continuity of Care Document ---
Author Organization [place] - [facility], [facility] Address [address] [place] [address] [place] [address] Assessment No assessment recorded. Plan of Treatment Reminders Order Date Submit Date Provider Last Modified By Organization Details Last Modified Time Details Appointments None recorded. Lab CMP, serum or plasma 2024 025 [facility], [address] [place] [address], [id number], 5 10:34:11 CBC 2024 025 [facility], [address] [place] [address], [address], 5 10:34:11 vitamin D, 25-hydrox y, total, serum 2024 025 [facility], [address] [place] [address], [address], 5 10:34:11 lipid panel, blood 2024 025 [facility], [address] [place] [address], [address], 5 10:34:10 Referral None recorded. Procedures None recorded. Surgeries None recorded. Imaging None recorded. Medication Orders None recorded. Patient TargetsNo targets recorded. Patient InstructionsNo instructions recorded. Reason for Referral None Reported. 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 Active 2018 Alexandra carson [facility] Internal [facility] 9 16:29:50 Anxiety 74166250 Active 2018 Alexandravinicius carson [facility] 9 16:31:50 Atrophic vaginiti s 58467727 Active 2021 GRACIELA CAMPBELL [address] [place], [address], [facility] Internal [facility] 2 09:42:58 Osteoart hritis 984372687 Active 2023 GRACIELA CAMPBELL [address] [place], [address], [facility] 4 09:08:52 Pain of left knee joint 38932447858 4107 Active 2023 GRACIELA CAMPBELL [address] [place], [address], [facility] Internal [facility] 4 10:30:08 Hearing loss 71377057 Active 2024 getting hearing aids GRACIELA CAMPBELL [address] [place] [address], [phone], [facility] 5 13:41:34 Problem Notes None recorded. Procedures Surgical History Date Name Laterality Status Provider Name and Address Organization Details Recorded Time 12/27/19 Most Recent Mammogram completed Alexandravinicius SalmeronR [facility] 01/08/2020 08:45:16 07/13/19 18 Date of Last Pap Smear completed [facility] JaronR [facility] 08/25/2018 16:33:53 09/28/19 14 Colonoscopy completed [facility] 08/25/2018 16:36:26 [facility] Bi[facility] 08/25[facility]2018 16:32:23 Hysterectomy/bl adder repair completed GRACIELA CAMPBELL [address] [place], [address], [facility] 08/18/2022 09:10:52 extraction of cataract completed GRACIELA CAMPBELL [address] [place], [address], [facility] 08/26/2023 09:10:35 Imaging Results None recorded. Procedure Notes None recorded. Medical Equipment None Reported. Allergies No known drug allergies Medications Name Sig Start Date Stop Date Status Note LastModified by Organization Details LastModified Time estradiol 0.1 mg/gm crea 1 gram & 01/07 completed Not Available Not Available [...] INSERT 1 GRAM VAGINALLY EVERY TUESDAY AND TUESDAY DIRECTED. active Not Available Not Available No [...] Details Last Updated DateTime 5 162.56 cm 27 kg/m2 13250.8 g 89 /min 96 % 96 % 146 mm[Hg] 92 mm[Hg] Rosenda Benitez [facility] 5 09:59:16 Social History Question Answer Notes LastModified by Organizat ion Details LastModified Time Tobacco Smoking Status Former Smoker on and off 10 years; stopped in early s. Chasity carson [facility] 08/07/2021 15:26:00 What Was The Date Of Your Most Recent Tobacco Screening? 08/27/2024 [email or web address] Information not available 08/27/2024 Do You Or Have You Ever Used Any Other Forms Of Tobacco Or Nicotine? No [email or web address] Information not available 08/18/2022 Sex: Unknown Functional Status None recorded. Mental Status None recorded. Family History Relationship Description Onset Age of this Age Resolved Age Notes LastModified by Organization Details LastModified Time Father Essential hypertension Not available 09:51:58 Mother Essential hypertension Not available 09:51:58 Mother Diabetes mellitus [email or web address] Not available 2018 08:16:03 Unspecified Relation Essential hypertension jerry gómez Not available 08/27/2024 09:51:58 Maternal Grandmother Family [...] N Breast Cancer N Blood Transfusion N COPD N Depression N Hypothyroidism N Lung Disease N Difficulty Swallowing N Anesthesia Complications Y Anxiety Disorder Y Obesity N Vision or Eye Problems Y Mental Disorder N Cancer N Stroke N Bladder or Kidney Problems N High Cholesterol N Liver Disease N Fibromyalgia N Headaches N Kidney Disease N Allergies/Hayfever Y Heart [...] zoster recombinant 09/05/19 21 completed GRACIELA CAMPBELL [address] [place] [address], [address], [facility] 08/07/2021 15:47:55 COVID-19, mRNA, LNP-S, PF, 100 mcg/0.5mL dose or 50 mcg/0.25mL dose 09/05/19 21 completed Chasity carson [facility] 09/15/2021 11:13:33 COVID-19, mRNA, LNP-S, PF, 100 mcg/0.5mL dose or 50 mcg/0.25mL dose 10/03/19 21 [facility] 11:13:41 COVID-19, mRNA, LNP-S, PF, 100 mcg/0.5mL dose or 50 mcg/0.25mL dose 05/01/20 [facility] 11:13:49 zoster, unspecified formulation 06/19/19 [facility] 11:14:31 zoster, unspecified formulation 09/05/19 [facility] 11:14:38 Influenza, split virus, quadrivalent, preservative 04/24/20 completed Chasity Cunha [facility] 09/15/2021 11:15:01 Influenza, split virus, quadrivalent, preservative 03/17/20 20 [facility] 11:15:09 Influenza, split virus, quadrivalent, preservative 02/23/20 19 [facility] 11:15:19 influenza, unspecified formulation 04/02/20 [facility]22 09:11:49 Pneumococcal conjugate PCV20, polysaccharide [id number] conjugate, adjuvant, PF 09/02/19 24 completed GRACIELA CAMPBELL [address] [place] [address], [address], [facility] 09/02/2023 16:00:20 Respiratory syncytial virus (RSV) vaccine, unspecified 09/02/19 24 completed GRACIELA CAMPBELL [address] [place] [address], [address], [facility] 09/02/2023 16:00:56 SARS-COV-2 (COVID-19) vaccine, UNSPECIFIED 03/13/20 24 [facility]24 11:04:12 SARS-COV-2 (COVID-19) vaccine, UNSPECIFIED 03/12/20 24 completed GRACIELA CAMPBELL [address] [place], [address], [facility] 03/13/2024 11:04:21 influenza, unspecified formulation 03/13/20 24 completed Rosenda carson [facility] 03/13/2024 11:04:23 influenza nasal, unspecified formulation 03/12/20 24 completed GRACIELA CAMPBELL [address] [place], [address], [facility] 03/13/2024 11:04:37 Td(adult) unspecified formulation 01/29/20 16 completed Alexandra carson [facility] 08/25/2018 16:33:05 Influenza, split virus, quadrivalent, preservative 03/17/20 20 completed Alexandra carson [facility] 03/18/2020 09:09:44 Past Encounters Encounter ID Performer Location Encounter Start Date Encounter Closed Date Diagnosis/Indication Diagnosis SNOMED-CT Code Diagnosis ICD10 Code Diagnosis Note [id number] Ion Rhoades [facility] [address] [address] 08/27/2024 09:51:35 08/27/2024 10:46:15 Active or passive immunization 303176939 Z23 utd Adult heal th examination 200116067 Z00.00 doing excellentm ust keep active Essential hypertension 30000134 I10 stablewill need to chk at home Pain of le ft knee joint 7611228861 62754 M25.562 hurts at night but uses tylenol 8hr xr shows djd but with exercise Health Concerns Section Related Observation LastModified by Organization Detai ls LastModified Time None Recorded Concern Status LastModified by Organization Details LastModified Time None Recorded Payers Encounter Date Sequence Insurance Name Policy Number Policy Maguire Covered Member ID Maguire Member ID Guarantor Name 08/27/2024 1 [facility]: MEDIC[place] P[place] BLUE (MEDICARE REPLACEMENT PPO) [id number] Chantelle Ibarra [id number] Chantelleclaudia Haider-Ale tin Notes Date Note Type Note Provider Name and Address Organization Details Recorded Time 5 text/htm l Annual WellnessReported bypatient.Diet and [...] headaches; no fatigue doing well overall Ion Rhoades, DO [address] [place], [address], [facility] 08/27/2024 10:36:55 OBGyn Episode No OBEpisode recorded.
--- OUTSIDE RECORDS SUMMARY | 2024-08-29 07:14 | XMS_ITS | Patient Health Record ---
Author Organization [facility] Address [address] [place] [address] Support Name Relationship Address Phone AGUS LOCO Guarantor Unknown Reason For Referral No Information Medications Medication SIG (Take, Route, Fr equency, Duration) Notes Start Date End Date Status Vagifem 10MCG Vaginal for -3 [facility]- 03/16/2011 Active Estrace 0.1MG 1APP PV VAGINAL 2 ti mes per week for -3 [facility] 07/12/2011 Active Multivitamins 1 ORAL daily for -3 [facility]- 07/12/2011 Active Calcium + D ORAL for -3 [facility] 07/12/2011 Activ e Problems Problem Type SNOMED Code ICD Code Onset Dates Problem Status W/U Status Risk Notes Problem Menopausal symptom (18760950) Symptomatic menopausal or female climacteric states (627.2) Active confirmed Major Problem Gynecological examination normal (041591745892127) Routine gynecological examination (V72.31) Active confirmed Major Problem Screening for malignant neoplasm of colon (823735363) Special screening for malignant neoplasms, colon (V76.51) Active confirmed Major Plan Of Treatment No Information Insurance Providers Payer Name Payer Address Payer Phone Subscriber Number Group Number Insured Name Patient Relationship to Insured Coverage Start Date Coverage End Date [employer] [address] [place] [address] [phone] [id number] AGUS LOCO Self - patient is the insured
[2024-08-29 10:18] LABS: MANUAL DIFF FLAG NO
[2024-08-29 10:25] LABS: Basophils Percent Auto 0.6 % (0-2); Eosinophils Absolute Auto 0.1 X10*3/uL (0.0-0.4); Eosinophils Percent Auto 1.8 % (0-4); Hematocrit 36.7 % (37.0-47.0); Hemoglobin 12.2 g/dl (12.0-16.0); Imm Gran Abs Auto 0.01 X10*3/uL (0.00-0.03); Imm Gran Pct Auto 0.2 % (0.0-0.4); Lymphocytes Percent Auto 39.4 % (20-40); Mean Corpuscular HGB Conc 33.2 g/dl (31.0-35.0); Mean Corpuscular Hemoglobin 30.1 pg (27.0-33.0); Mean Corpuscular Volume 90.6 fL (80.0-98.0); Mean Platelet Volume 9.6 fL (9.4-12.3); Monocytes Absolute Auto 0.4 X10*3/uL (0.1-1.2); Monocytes Percent Auto 6.9 % (2-11); Neutrophils Absolute Auto 2.6 x10*3/uL (2.0-8.3); Neutrophils Percent Auto 51.1 % (45-73); Platelet Count 205 X10*3/uL (160-400); Red Blood Count 4.05 X10*6/uL (4.20-5.50); Red Cell Distribution Width 12.2 % (11.0-16.0); White Blood Count 5.1 X10*3/uL (4.8-10.8)
[2024-08-29 11:42] LABS: Alanine Aminotransferase 26 U/L (0-31); Albumin Level 4.3 g/dL (3.5-5.0); Alkaline Phosphatase 59 U/L (39-117); Anion Gap 9 (12-20); Aspartate Amino Transferase 21 U/L (5-31); Bilirubin Total 0.4 mg/dL (0.0-1.0); Blood Urea Nitrogen 18 mg/dL (9-16); Calcium 9.7 mg/dL (8.4-10.2); Carbon Dioxide 26 mmol/L (22-29); Chloride 111 mmol/L (96-108); Cholesterol 248 mg/dL (<200); Estimated Glomerular Filt Rate > 60; Glucose Random 85 mg/dL (60-115); HDL Cholesterol 44 mg/dL (>40); LDL Cholesterol Calculated 165 mg/dL (<100); Sodium 142 mmol/L (135-145); Total Protein 6.9 g/dL (6.5-8.0); Triglycerides 197 mg/dL (<150)
[2024-08-29 11:43] LABS: Vitamin D 25-OH Total 52.6 ng/mL (>30)
== END 2024-08-29 07:11 | disposition home or self-care (01) ==
LOC: HO.HMGCLDS 07:10
PROVIDERS: PCP Internal Medicine; Visit Provider Internal Medicine
DX: I10 Essential (primary) hypertension (principal)
CPT/HCPCS: 36415; 80053; 80061; 82306; 85025

== ENCOUNTER 2024-10-17 06:43 | Day surgery (SDC) | payer MEDICARE, SELFPAY ==
[2024-10-15 12:47] VITALS: BMI 25.6
--- NOTE | 2024-10-16 09:59 | HO.ANESPROP2 ---
Documented by User: Kierra Calvin NP 10/16/24 09:59 HPI - Anesthesia Eval Consult details Narrative: 68yo F for Colonoscopy [facility] Past Medical History Medical History (Updated 10/15/24 @ 12:48 by Siomara Mena RN) HTN (hypertension) Surgical History Surgical History (Updated 10/15/24 @ 12:53 by Siomara Mena RN) History of total abdominal hysterectomy H/O colonoscopy Social History Social History (Updated 10/15/24 @ 12:50 by Siomara Mena RN) Household Members: Spouse Are you a primary animal care giver to a significant other at home: No Do you presently have visiting nurse or other home services: No Patient Tobacco Use Status: Never used Tobacco Meds Allergies Allergy/AdvReac Type Severity Reaction Status Date / Time No Known Allergies Allergy Verified 04/25/23 12:02 Home Medications ?Medication ?Instructions ?Recorded ?Confirmed ?Last Taken ?Type estradiol 0.01% (0.1 mg/gram) 1 appl vaginal 2XW 04/25/23 10/15/24 Unknown History vaginal cream lisinopril 10 mg tablet 10 mg PO DAILY 04/25/23 10/15/24 Unknown History calcium 600 mg (as 1 tab PO DAILY 10/15/24 10/15/24 Unknown History carbonate)-vitamin D3 5 mcg (200 unit) tablet Exam Height,Weight and Vital Signs: Height 5 ft 5 in Weight 69.853 kg Assessment and Plan Assessment Anesthesia Assessment: Chart Reviewed Documented by User: Neil Osorio MD 10/17/24 07:19 [facility] Past Medical History Medical History (Updated 10/15/24 @ 12:48 by Siomara Mena RN) HTN (hypertension) Functional capacity: independent ambulation Patient : No Family History Family history of problems with anesthesia: No Surgical History Surgical History (Updated 10/15/24 @ 12:53 by Siomara Mena RN) History of total abdominal hysterectomy H/O colonoscopy History of Problems with Anesthesia: No Social History Social History (Updated 10/15/24 @ 12:50 by Siomara Mena RN) Household Members: Spouse Are you a primary animal care giver to a significant other at home: No Do you presently have visiting nurse or other home services: No Patient Tobacco Use Status: Never used Tobacco Travel History History of recent travel: No Recent Travel in [facility] Within the Last 8 Weeks: No Recent Out of Country Travel Within the Last 8 Weeks: No Exposure or Possible Exposure to Illness During Travel: No History of Being in a Healthcare Facility as a Patient, Worker, or Visitor during Travel: No Medical Treatment Received for Symptoms/Illness Related to Travel: No Meds Allergies Allergy/AdvReac Type Severity Reaction Status Date / Time No Known Allergies Allergy Verified 04/25/23 12:02 Home Medications ?Medication ?Instructions ?Recorded ?Confirmed ?Last Taken ?Type estradiol 0.01% (0.1 mg/gram) 1 appl vaginal 2XW 04/25/23 10/15/24 Unknown History vaginal cream lisinopril 10 mg tablet 10 mg PO DAILY 04/25/23 10/15/24 Unknown History calcium 600 mg (as 1 tab PO DAILY 10/15/24 10/15/24 Unknown History carbonate)-vitamin D3 5 mcg (200 unit) tablet Exam Airway Mallampati Class: II TM Dist: >3cm Neck ROM: Full Denture: Upper Loose/Missing/Broken Teeth: Yes Heart: rrr Lungs: cts Assessment and Plan Final Anesthetic Review Family History of Problems with Anesthesia: No History of Problems with Anesthesia: No Anesthetic Plan Anesthetic Plan: MAC: Disposition: Standard PACU
[2024-10-17 06:55] VITALS: BMI 25.0
[2024-10-17 07:18] VITALS: BP 135/75; PULSE 80; RESP 16; TEMP 36.2; O2SAT 98
[2024-10-17 08:30] VITALS: BP 119/61; PULSE 81; RESP 14; TEMP 37; O2SAT 100
--- NOTE | 2024-10-17 08:35 | P.BOP_ITS ---
Brief Operative Note Date of Service: 10/17/24 Pre-op diagnosis: Screening Post-op diagnosis: other (Diverticulosis) Procedure: Colonoscopy to the cecum Surgeon: Bruno Ontiveros MD Anesthesia: MAC Was an Classified Copy Control Clerk used for this Procedure?: No Estimated blood loss (mL): 0 Pathology: none sent Condition: stable Disposition: PACU
--- NOTE | 2024-10-17 08:52 | OP_ITS ---
DATE OF SERVICE: 10/17/2024 SURGEON: Bruno Ontiveros MD INDICATIONS: Patient presents for evaluation of colorectal cancer screening. Full consent was obtained from her for this, including risks of bleeding and perforation. PREOPERATIVE DIAGNOSIS: Colorectal cancer screening. POSTOPERATIVE DIAGNOSIS: Colorectal cancer screening, diverticulosis and internal hemorrhoids. PROCEDURE PERFORMED: Colonoscopy to the cecum. ESTIMATED BLOOD LOSS: COMPLICATIONS: ANESTHESIA: Monitored anesthesia care. ASSISTANTS: SPECIMENS: DESCRIPTION OF PROCEDURE: The patient was placed in the left lateral decubitus position. The digital rectal exam revealed no abnormalities. The Olympus video pediatric colonoscope was entered into the rectum and advanced easily to the cecum. Once in the cecum, I did identify normal-appearing cecal pouch with appendiceal orifice and a normal-appearing ileocecal valve. The entire cecum and ileocecal valve appeared normal. There was transillumination of light deep in the right lower quadrant. The scope was then slowly withdrawn, assessing all mucosal surfaces carefully. Preparation was excellent. I did not visualize any sign of polyps, colitis, nor angiodysplasia. There was a relatively diffuse diverticulosis extending from the sigmoid colon to the ascending colon. In the rectum, scope was retroflexed, visualizing internal hemorrhoids, but no other pathology. The rectal mucosa appeared normal. Scope was straightened and withdrawn from the patient. She tolerated the procedure well and was returned to recovery area in stable condition. IMPRESSION: 1. Diverticulosis. 2. Internal hemorrhoids. PLAN: Given the negative exam, I would recommend a repeat colonoscopy in 10 years for further screening. She will otherwise see me on a p.r.n. basis. MD JUDY Molina/STEPHENL / [phone]
[2024-10-17 08:53] VITALS: BP 135/72; PULSE 74; RESP 18; TEMP 36.4; O2SAT 98
== END 2024-10-17 09:34 | disposition home or self-care (01) ==
PROVIDERS: PCP Physician Assistant; Visit Provider Internal Medicine
PROC: 0DJD8ZZ Inspection of Lower Intestinal Tract, Via Natural or Artificial Opening Endoscopic (ICD-10-PCS; CPT 45378; principal; 2024-10-17 07:30)
DX: Z12.11 Encounter for screening for malignant neoplasm of colon (principal); K57.30 Diverticulosis of large intestine without perforation or abscess without bleeding; K64.8 Other hemorrhoids; I10 Essential (primary) hypertension; Z79.899 Other long term (current) drug therapy
CPT/HCPCS: G0121; J2003; J2704

== ENCOUNTER 2024-10-29 08:53 | Outpatient (AMB) | payer MEDICARE, SELFPAY ==
--- NOTE | 2024-10-29 09:44 | MHC.OFFWIV ---
Intake Vital Signs 10/29/24 09:46 Height 5 ft 5 in Weight 149 lb BMI 24.8 BP 110/80 Blood Pressure Location Rt brachial Position Sitting Pulse 89 Pulse Source Pulse Oximeter Pulse Oximetry (%) 98 Oxygen Delivery Method Room Air Intake Visit Reasons: EP Ears blocked Intake Note: Patient here for left ear pain/discomfort, she states she was recently sick but is unsure if its related. Patient Tobacco Use Status: Never used Tobacco Allergies No Known Allergies Allergy (Verified 10/29/24 09:47) Do you need a note to return to daycare/school/sports/work: No HPI HPI Comments History of Present Illness Details History of Present Illness The patient is a 68-year-old female presenting with symptoms of left ear congestion persisting for two weeks. She describes the sensation in the left ear as a blocked feeling, similar to being underwater, without associated pain, fever, or discharge. The patient initially attributed these symptoms to a cold or allergies and took jfse-dux-uhclqoc decongestants, but given her essential hypertension, she discontinued their use after one week. She continues to use Cetirizine, which modestly helps with her allergy symptoms, and denies the use of nasal sprays. There has been no relief, and she reports some hearing reduction, which may be on top of pre-existing presbycusis noted during a June hearing baseline test. There are no other upper respiratory symptoms such as sore throat, cough, or nasal drip. No prior ear surgeries or interventions, such as tubes, have been performed. She denies SIMON, dizziness, sore throat, cough, discharge, or sick contacts. Physical Exam General: Cooperative, healthy appearing, comfortable, no acute distress and well developed Orientation: Patient oriented x3 Head: Normal to inspection Ears: Left ear with some redness noted on the canal wall and TM, not bulging, no cone of light. No cerumen or discharge noted in the canal. Right ear is normal. Nose: Normal external nose present Face and sinus: Normal facial exam Eyes: Appearance normal, both eyes and all related structures Neck: Normal visual inspection and Yes full ROM Respiratory: Normal respiratory effort and able to speak in complete sentences. Clear to auscultation bilaterally Cardiovascular: Regular rate and rhythm. Normal S1 and S2 Skin: No rashes or lesions noted Patient was informed and verbally consented to the use of an ambient scribe for clinic note documentation during this visit. [facility] Medical History (Updated 10/15/24 @ 12:48 by Siomara Mena RN) HTN (hypertension) Surgical History (Updated 10/15/24 @ 12:53 by Siomara Mena RN) History of total abdominal hysterectomy H/O colonoscopy Social History (Updated 10/15/24 @ 12:50 by Siomara Mena RN) Household Members: Spouse Are you a primary insurance healthcare consultant to a significant other at home: No Do you presently have visiting nurse or other home services: No Patient Tobacco Use Status: Never used Tobacco Review of Systems Const All systems reviewed & are unremarkable except as noted in HPI and below Physical Exam Vital Signs: Last Vital Signs Pulse 89 10/29/24 09:46 BP 110/80 10/29/24 09:46 Pulse Ox 98 10/29/24 09:46 Oxygen Delivery Method Room Air 10/29/24 09:46 BMI result Body Mass Index 24.8 Assessment & Plan Assessment & Plan (1) Left ear pain: Code(s): H92.02 - Otalgia, left ear Plan Most likely sinus congestion vs OM vs OE vs cerumen impaction Plan I will initiate treatment with Fluticasone nasal spray to address the likely allergic cause of her left ear pain, reducing nasal and sinus congestion that may be affecting her ear. Continued use of Cetirizine is recommended, and she may use pseudoephedrine sparingly due to her history of high blood pressure. Should the condition not improve or deterioration such as significant hearing loss occur, the patient should f/u with her PCP for a referral to an ophthalmology assistant for further assessment and management. Medications: New fluticasone propionate 50 mcg/actuation administer into each nostril 1 spray intranasal Q12H 16 grams 0RF Coding Level of Care Code Est Pt Level 3 (26363) Diagnoses Left ear pain H92.02
[2024-10-29 09:46] VITALS: BP 110/80; PULSE 89; O2SAT 98; BMI 24.8
== END 2024-10-29 10:25 | disposition home or self-care (01) ==
PROVIDERS: PCP Internal Medicine; Visit Provider Physician Assistant Medical
DX: H92.02 Otalgia, left ear (principal)

== ENCOUNTER → 2024-10-29 08:53 | Outpatient (BNVA) | payer MEDICARE, SELFPAY | PROVIDERS: PCP Internal Medicine; Visit Provider Physician Assistant Medical | DX: H92.02 Otalgia, left ear (principal) | CPT/HCPCS: 99212 ==

== ENCOUNTER 2025-01-29 08:36 | Outpatient (REF) | payer MEDICARE, SELFPAY ==
--- OUTSIDE RECORDS SUMMARY | 2024-10-17 03:30 | XMS_ITS ---
Author Organization [facility] Address [address] [place] [address] Care Team Providers Care Box Spring Frame Builder Name Role Phone Ion Rhoades Primary Care Provider Bruno Linares [phone] REASON FOR VISIT screening Encounters Encounter Location Date Provider Diagnosis [facility] Outpatient [address] [place], [place] [id number] 10/17/2024 Bruno Ontiveros Colon cancer scree cindy Z12.11 ; Diverticulosis of large intestine without perforation or abscess without bleeding K57.30 and Other hemorrhoids K64.8 Assessments Encounter Date Diagnosis (ICD Code) Assessment Notes Treatment Notes Treatment Clinical Notes Section Notes 10/17/2024 Colon cancer screening (ICD-10 - Z12.11) 10/17/2024 Diverticulosis of large intestine without perforation or abscess without bleeding (ICD-10 - K57.30) 10/17/2024 Other hemorrhoids (ICD-10 - K64.8) Plan Of Treatment No Information Progress Notes * AGUS LOCO COURTNEY B:1955 (69 yo F)Acc No.[id number]:10/17/2024 COLON WITH MAC Patient: Shyam MATOS AGUS RUBI Provider: Sherry Ontiveros MD :1955 A ge:68 Y S ex:Female Date:10/17/2024 Address:[address] [id number] Pcp:Ion Rhoades Subjective: * Chief Complaints: * 1 . Screening. * Medical History: Objective: * Vitals: Assessment: * Assessment: 1. C olon cancer screening - Z12.11 (Primary) 2 . D iverticulosis of large intestine without perforation or abscess without bleeding - K57.30 3 . O ther hemorrhoids - K64.8 Plan: * Treatment: * Procedure Codes: G 0121 COLOREC CNCR SCR;COLNSCPY NO HI RSK, 0529F INTRVL 3+YRS PTS CLNSCP DOCD, 0528F RCMND FLW-UP 10 YRS DOCD * * The named appointment provid er may or may not be the originator of this progress note, and it is not deemed complete until electronically signed by the appointment provider. Sign off status: Pending * Provider: Sherry Ontiveros MD Date: 0 10/17/2024 Generated for Betty archer/Brandee/Kylahitting on: 0 01/29/2025 09:18 AM EDT
--- OUTSIDE RECORDS SUMMARY | 2025-01-29 09:18 | XMS_ITS | Patient Health Record ---
Author Organization [facility] Address [address] [place] [address] Support Name Relationship Address Phone AGUS LOCO Guarantor Unknown [phone] Reason For Referral No Information Medications Medication SIG (Take, Route, Fr equency, Duration) Notes Start Date End Date Status Vagifem 10MCG Vaginal; Duration: -3 Joaquin-MJ 03/16/2011 Active Estrace 0.1MG 1APP PV VAGINAL 2 ti mes per week; Duration: -3 Joaquin-MJ 07/12/2011 Active Multivitamins 1 ORAL daily; Duration: -3 Joaquin-MJ 2 Active Calcium + D ORAL; Duration: -3 Joaquin-MJ 07/12/2011 Active Problems Problem Type SNOMED Code ICD Code Onset Dates Problem Status W/U Status Risk Notes Problem Menopausal symptom (96548068) Symptomatic menopausal or female climacteric states (627.2) Active confirmed Major Problem Gynecological examination normal (544402821397945) Routine gynecological examination (V72.31) Active confirmed Major Problem Screening for malignant neoplasm of colon (483382885) Special screening for malignant neoplasms, colon (V76.51) Active confirmed Major Plan Of Treatment No Information Insurance Providers Payer Name Payer Address Payer Phone Subscriber Number Group Number Insured Name Patient Relationship to Insured Coverage Start Date Coverage End Date [employer] [address] [place] [address] [id number] AGUS LOCO Self - patient is the insured
--- OUTSIDE RECORDS SUMMARY | 2025-01-29 09:18 | XMS_ITS | Patient Health Record ---
Author Organization [facility] Address [address] [place] [address] Care Team Providers Care Lock Operator Name Role Phone Jf Ion Primary Care Provider Bruno Linares [phone] Allergies No Known Allergies Reason For Referral [...] Status Risk Notes Problem Colon cancer screening (544527252) Colon cancer screening (Z12.11) Active confirmed Problem Pre-procedure evaluation check (878175790) Encounter for other preprocedural examination (Z01.818) Active confirmed Vital Signs Temperature 96.9 degrees Fahrenheit 06/27/2024 Blood pressure diastolic 00 mm Hg 06/27/2024 Height 65 in 06/27/2024 Blood pressure systolic 000 mm Hg 06/27/2024 Weight 154 lbs 06/27/2024 BMI 25.62 kg/m2 06/27/2024 Encounters Encounter Location Date Provider Diagnosis [facility] [address] [place], [place] [id number] 10/17/2024 Bruno Ontiveros Colon cancer screeni ng Z12.11 ; Diverticulosis of large intestine without perforation or abscess without bleeding K57.30 and Other hemorrhoids K64.8 [facility] [address] [place] [phone] 06/27/2024 Bruno Ontiveros Colon cancer screeni ng Z12.11 and Encounter for other preprocedural examination Z01.818 [facility] [address] [facility] [address] [place] [phone] 06/29/2024 Bruno Ontiveros Assessments Encounter Date Diagnosis (ICD Code) Assessment Notes Treatment Notes Treatment Clinical Notes Section Notes 10/17/2024 Colon cancer screening (ICD-10 - Z12.11) 10/17/2024 Diverticulosis of large intestine without perforation or abscess without bleeding (ICD-10 - K57.30) 06/27/2024 Colon cancer screening (ICD-10 - Z12.11) [...] to keep you advised of her progress. 10/17/2024 Other hemorrhoids (ICD-10 - K64.8) Plan Of Treatment Future Test Test Name Order Date COLONOSCOPY 07/11/2013 COLONOSCOPY 06/27/2024 Insurance Providers Payer Name Payer Address Payer Phone Subscriber Number Group Number Insured Name Patient Relationship to Insured Coverage Start Date Coverage End Date [facility] [address] [place] [address] [id number] AGUS LOCO Self - patient is the insured Medical (General) History Medical History History ICD Code Negative colonoscopy in 2007, except for diverticulosis Denies VT,DM,CVA,Lung disease,renal dise ase Negtaive screening colonoscopy in 2013 e xcept for a hyperplastic polyp HTN Surgical History Surgery Date(Month/Year) FELISHA, Bladder suspension 2018
== END 2025-01-29 08:37 | disposition home or self-care (01) ==
LOC: HO.MAMMO 08:36
PROVIDERS: Absent Provider Physician Assistant; PCP Internal Medicine; Visit Provider Internal Medicine
DX: Z12.31 Encounter for screening mammogram for malignant neoplasm of breast (principal)
CPT/HCPCS: 77063; 77067

== ENCOUNTER → 2025-01-29 08:45 | Outpatient (BNV) | payer MEDICARE, SELFPAY | PROVIDERS: Absent Provider Physician Assistant; PCP Internal Medicine; Visit Provider Internal Medicine | DX: Z12.31 Encounter for screening mammogram for malignant neoplasm of breast (principal) | CPT/HCPCS: 77063; 77067 ==